=== PATIENT | female | born 1950 | race Caucasian/White ===

== ENCOUNTER 2018-04-14 05:30 | Day surgery (SDC) | payer MEDICARE, OTHER ==
[2018-04-11 11:54] LABS: HEMATOCRIT 40.5 % (36.0-48.0); HEMOGLOBIN 13.9 g/dL (12-16); MCHC 34.3 g/dL (31.0-37.0); MEAN PLATELET VOLUME 8.9 fL (7.4-10.4); RBC 4.09 10x6/uL (4.00-5.40); RDW 12.8 % (11.5-14.5)
[~2018-04-14] VITALS: Ht 170.2 cm; Wt 88.5 kg
--- NOTE | ~2018-04-14 | OP ---
PATIENT NAME: ANTWAN MCCORMACK MEDICAL RECORD: [id number] :46 LOCATION:D.OPS ADMISSION DATE: SURGEON: MARTELL BRADSHAW MD DATE OF OPERATION: 04/14/2018 PREOPERATIVE DIAGNOSIS: Lateral meniscus tear of the right knee. POSTOPERATIVE DIAGNOSIS: Lateral meniscus tear of the right knee. PROCEDURE: Arthroscopic partial lateral meniscectomy. SURGEON: Martell Bradshaw MD ANESTHESIA: General. INTRAOPERATIVE COMPLICATIONS: None. SUMMARY OF PATHOLOGIC FINDINGS: The patient had substantial tearing of the lateral meniscus, very complex in nature. OPERATIVE SUMMARY IN DETAIL: After obtaining the appropriate preoperative orthopedic surgery consent as well as anesthetic consultation, evaluation, and clearance, the patient was brought to the operating room and placed on the operating table in the supine position. After general laryngeal mask was administered, tourniquet was placed about the proximal aspect of the right lower extremity. The right lower extremity was then prepped and draped in routine sterile fashion. The leg was elevated, exsanguinated, and tourniquet was inflated to 350 mmHg. Routine inferolateral portal was established followed by superomedial portal and inferomedial portal. Diagnostic arthroscopy did reveal the above findings. Combination of 3.5 full radius resector as well as meniscotome was then utilized to excise the lateral meniscus almost in its entirety. Having completed this, the knee was insufflated with 30 cc of 0.25% Marcaine with epinephrine and 80 mg of Depo-Medrol. Arthroscopy portals were closed in routine interrupted fashion using 4-0 Prolene. Sterile dressings were applied. The patient was awakened and taken to recovery room in stable condition. All final needle and sponge counts were correct. TRANSINT:[id number] Voice Confirmation ID: [id number] DOCUMENT ID: [id number] MARTELL BRADSHAW MD at 0837 CC: [id number] DICTATION DATE: 04/15/18 1547 CERTIFIER: 04/15/18 1748 [facility] 04/14/[address] [address]
[~2018-04-14 05:30] MED LIST: BUSPAR5 MG PO; CELEXA40 MG PO; OXYBUTYNIN CHLOR5 MG PO; ULTRAM50 MG PO
[2018-04-14 06:08] VITALS: BP 124/77; Ht 170.2 cm; Wt 88.5 kg
[2018-04-14] MEDS ORDERED: NORCO 10-325 TA1 TAB PO (07:59)
== END 2018-04-14 09:54 | disposition home or self-care (01) ==
LOC: D.OPS 05:30 → D.PAN 12:30 → D.OPS 12:30
PROVIDERS: Anesthesiology
DX: S83.271A Complex tear of lateral meniscus, current injury, right knee, initial encounter (principal); Z01.812 Encounter for preprocedural laboratory examination

== ENCOUNTER 2019-04-10 09:35 | Day surgery (SDC) | payer MEDICARE, OTHER ==
[~2019-04-10] VITALS: Ht 170.2 cm; Wt 86.2 kg
--- NOTE | ~2019-04-10 | OP ---
PATIENT NAME: ANTWAN MCCORMACK MEDICAL RECORD: [id number] :46 LOCATION:D.OPS ADMISSION DATE: SURGEON: JHONNY ROBINS MD DATE OF OPERATION: 04/10/2019 PREOPERATIVE DIAGNOSES: Lumbar spinal stenosis and foraminal stenosis, L4-L5 on the right. POSTOPERATIVE DIAGNOSES: Lumbar spinal stenosis and foraminal stenosis, L4-L5, on the right. SURGEON: Dr. Jhonny Robins PROCEDURES: Right L4-L5 laminectomy, medial facetectomy, and foraminotomy L4-L5 on the right. DESCRIPTION AND TECHNIQUE: After induction of general endotracheal anesthesia, the patient was rolled prone on a Norman frame. Lumbar spine was prepped and draped in usual sterile fashion. Fluoroscopic x-ray and spinal needle localized the L4-L5 interspace on the right side. A stab incision was created with a #11 blade. Series of dilators was used to advance a METRx retractor to the L4-L5 interspace on the right. A microscope and Midas Unruly drill were used to perform a laminectomy, medial facetectomy and foraminotomy at L4-L5 on the right. Hypertrophied ligamentum flavum was removed with Cloward rongeurs as long as the L5 nerve roots decompressed well. Meticulous hemostasis was maintained throughout the wound. Wound was irrigated with copious amounts of irrigant solution. The fascia was closed with 2-0 Vicryl suture. Subdermal layer was closed with 3-0 Vicryl suture. Skin was closed with gopal. A sterile dressing was applied to the wound. The patient was awakened in good condition and taken to recovery. All counts were reported as correct. Estimated blood loss was minimal. TRANSINT:[id number] Voice Confirmation ID: [id number] DOCUMENT ID: [id number] JHONNY ROBINS MD CC: [id number] DICTATION DATE: 04/10/19 1449 AUTOMATION DESIGN ENGINEER: 04/11/19 0023 [facility] 04/10/19 [place] [id number]
[~2019-04-10 09:35] MED LIST changes: +NORCO 10-325 TA1 TAB PO
[2019-04-10 10:42] VITALS: BP 130/77; Ht 170.2 cm; Wt 86.2 kg
[2019-04-10] MEDS ORDERED: HYDROCODON-ACE1 EA10 PO (13:48)
== END 2019-04-10 16:00 | disposition home or self-care (01) ==
LOC: D.OPS 09:35 → D.PAN 10:05 → D.OPS 11:30 → D.PAN 11:30 → D.OPS 11:40 → D.PAN 11:40 → D.OPS 16:00
PROVIDERS: ATTEND Neurological Surgery
DX: M48.061 Spinal stenosis, lumbar region without neurogenic claudication (principal)

== ENCOUNTER 2019-04-13 09:40 | Inpatient (IN) | payer MEDICARE, OTHER ==
[~2019-04-13] VITALS: Ht 170.2 cm; Wt 90.9 kg
[~2019-04-13 09:40] MED LIST changes: +HYDROCODON-ACE1 EA10 PO
[2019-04-13 10:28] LABS: BASOPHILS 0.4 % (0-2); EOSINOPHILS 2.1 % (0-7); HEMATOCRIT 35.2 % (36.0-48.0); HEMOGLOBIN 11.8 g/dL (12-16); IMMATURE GRANULOCYTES 0.4 % (0-5); LYMPHOCYTES 29.2 % (15-50); MCH 33.3 pg (26.0-34.0); MCHC 33.5 g/dL (31.0-37.0); MCV 99.4 fL (80.0-100.0); MEAN PLATELET VOLUME 9.4 fL (7.4-10.4); MONOCYTES 8.4 % (2-11); NEUTROPHILS 59.5 % (40-80); PLATELET COUNT 232 10x3/uL (130-400); RBC 3.54 10x6/uL (4.00-5.40); RDW 13.1 % (11.5-14.5); WBC 7.6 10x3/uL (4.8-10.8)
[2019-04-13 10:47] LABS: ALKALINE PHOSPHATASE 73 U/L (46-116); ALT (SGPT) 19 U/L (10-68); BILIRUBIN - TOTAL 0.61 mg/dL (0.2-1.3); CALC OSMOLALITY 282 mosm/kg (275-300); CALCIUM 8.3 mg/dL (8.5-10.1); CARBON DIOXIDE 24.3 mmol/L (21.0-32.0); CHLORIDE - SERUM 107 mmol/L (98-107); CREATININE - SERUM 0.5 mg/dL (0.6-1.3); GLUCOSE 81 mg/dL (74-106); POTASSIUM - SERUM 3.5 mmol/L (3.5-5.1); PROTEIN - SERUM 6.5 g/dL (6.4-8.2); SODIUM 143 mmol/L (136-145); UREA NITROGEN 11 mg/dL (7-18); eGFR NON AFRICAN AMERICAN > 90 mL/min (90-120)
--- NOTE | 2019-04-13 12:52 | NUR ---
REPORT TO DANIELLA PHAN. [place]ITTED [place] [id number]
--- NOTE | 2019-04-13 13:11 | MORECARE ---
CASE MANAGEMENT DISCHARGE SUMMARY PATIENT: ANTWAN MCCORMACK UNIT: [id number] ADM DATE: 04/13/19 AGE: 68 : 48 SEX: F ROOM/BED: D.2239 AUTHOR: SANTO PLAZA PHYSICIAN: REFERRING PHYSICIAN: EYAL HDZ MD DATE OF SERVICE: 04/13/19 Discharge Plan Patient Name: ANTWAN MCCORMACK Facility: [facility]:[place] : 1950 Planned Disposition: Anticipated Discharge Date: 04/14/19 Discharge Date: Expected LOS: 1 Initial Reviewer: [email or web address] Initial Review Date: 04/13/2019 Generated: 04/13/19 2:11 pm Coverage Notice Reviewer: [email or web address] Kassidy Vernon Notice Issued Date-Time: 04/13/2019 11:38 Notice Type: Medicare Outpatient Observation Notice Notice Delivered To: Patient Relationship to Patient: Instrument Specialist Name: Delivery Method: HAND - Hand Delivered Meredith Days: Prior Verbal Notification: Recipient Understood Notice: Recipient Signature: Med Rec Note Co-signed by Attending: Coverage Notice Comment: Patient Name: ANTWAN MCCORMACK Page [id number] at 1311 All edits/amendments must be made on the electronic document DICTATION DATE: 04/13/19 1311 PAINT MIXER MACHINE: MIGUEL 04/13/19 1311 RPT#: [id number] DC DATE: STATUS: ADM IN [facility] [address] [place] [address] END OF REPORT
--- NOTE | 2019-04-13 13:15 | NUR ---
RECEIVED TO ROOM 2239 VIA STRETCHER FROM THE ER. A/O X3. SKIN INTACT WITHOUT REDNESS EXCEPT SMALL INCISION TO MID BACK WITH 13 CLIPS INTACT, WOUND IS CLEAN DRY AND WELL APPROXIMATED. DENIES NEEDS.
--- NOTE | 2019-04-13 13:22 | MORECARE ---
CASE MANAGEMENT DISCHARGE SUMMARY PATIENT: ANTWAN MCCORMACK UNIT: [id number] ADM DATE: 04/13/19 AGE: 68 : 48 SEX: F ROOM/BED: D.2239 AUTHOR: MELADOC PHYSICIAN: REFERRING PHYSICIAN: EYAL HDZ MD DATE OF SERVICE: 04/13/19 Discharge Plan Patient Name: ANTWAN MCCORMACK Facility: [facility]:[place] : 1950 Planned Disposition: Anticipated Discharge Date: 04/14/19 Discharge Date: Expected LOS: 1 Initial Reviewer: [email or web address] Initial Review Date: 04/13/2019 Generated: 04/13/19 2:21 pm DCP- Discharge Planning Updated by [email or web address]: Jesika Vernon on 04/13/19 12:[address] DC PLAN: Return to her sig other's house. ANTICIPATED DC NEEDS: Denied need for HH or OP Therapy. CM met with patient to complete initial dc planning assessment. CM educated patient on the CM role and verbal consent given by patient to complete assessment. CM verified patient's address, phone number, and emergency contact phone numbers. Patient lives at her sig other's house right now. She reports she is independent in her care at home. At discharge patient plans to return to her significant other's house and feels this is a safe discharge. CM discussed availability of home health, rehab services, and medical equipment. Patient denied known discharge needs at this time. Patient reports her sig other will transport him/her home at time of discharge. CM will continue to follow and will assist as needed with dc plans/needs. Jesika Vernon RN, [facility] DCPIA - Discharge Planning Initial Assessment Updated by [email or web address]: Jesika Vernon on 04/13/19 1:11 pm * Is the patient Alert and Oriented? Yes * How many steps to enter\exit or inside your home? none * PCP Dr. Minor * Pharmacy [address] * Preadmission Environment Home with Family * ADLs Independent * Equipment Cane Rolling Walker * List name and contact numbers for known caregivers / representatives who currently or will assist patient after discharge: Iván Morocho - [facility] [place] - [phone] * Verbal permission to speak to the caregivers and representatives has been obtained from the patient. Yes * Community resources currently utilized None * Additional services required to return to the preadmission environment? No * Can the patient safely return to the preadmission environment? Yes * Has this patient been hospitalized within the prior 30 days at any hospital? Yes Coverage Notice Reviewer: [id number] Kassidy Vernon Notice Issued Date-Time: 04/13/2019 11:38 Notice Type: Medicare Outpatient Observation Notice Notice Delivered To: Patient Relationship to Patient: Enterprise Sales Executive Name: Delivery Method: HAND - Hand Delivered Meredith Days: Prior Verbal Notification: Recipient Understood Notice: Recipient Signature: Med Rec Note Co-signed by Attending: Coverage Notice Comment: Last DP export: 04/13/19 12:11 p Patient Name: ANTWAN MCCORMACK Page [id number] at 1322 All edits/amendments must be made on the electronic document DICTATION DATE: 04/13/19 1321 VOCATIONAL REHABILITATION ADMINISTRATOR: MIGUEL 04/13/19 1321 RPT#: [id number] DC DATE: STATUS: ADM IN [facility] [address] [place] [address] END OF REPORT
[2019-04-13 13:27] VITALS: BP 125/70; Ht 170.2 cm; Wt 90.9 kg
[2019-04-13 15:55] VITALS: BP 120/53
--- NOTE | 2019-04-13 19:33 | NUR ---
ATE ALL OF SUPPER. REPORTS BEING MUCH MORE COMFORTABLE WITH USE OF ELECTROCARDIOGRAPHIC TECHNICIAN. DENIES NEEDS.
[2019-04-13 22:28] VITALS: BP 123/68
[2019-04-14] VITALS: BP 106/66
[2019-04-14 06:13] VITALS: BP 123/78
[2019-04-14 06:49] LABS: BASOPHILS 0 % (0-2); EOSINOPHILS 0 % (0-7); HEMATOCRIT 35.3 % (36.0-48.0); HEMOGLOBIN 11.7 g/dL (12-16); IMMATURE GRANULOCYTES 0.2 % (0-5); LYMPHOCYTES 16.6 % (15-50); MCH 32.7 pg (26.0-34.0); MCHC 33.1 g/dL (31.0-37.0); MCV 98.6 fL (80.0-100.0); MEAN PLATELET VOLUME 9.6 fL (7.4-10.4); MONOCYTES 3.1 % (2-11); NEUTROPHILS 80.1 % (40-80); PLATELET COUNT 267 10x3/uL (130-400); RBC 3.58 10x6/uL (4.00-5.40)
[2019-04-14 06:54] LABS: WBC 4.5 10x3/uL (4.8-10.8)
[2019-04-14 07:03] LABS: ALBUMIN 2.9 g/dL (3.4-5.0); ALKALINE PHOSPHATASE 70 U/L (46-116); ALT (SGPT) 17 U/L (10-68); BILIRUBIN - TOTAL 0.27 mg/dL (0.2-1.3); CALC OSMOLALITY 280 mosm/kg (275-300); CALCIUM 8.7 mg/dL (8.5-10.1); CARBON DIOXIDE 25.5 mmol/L (21.0-32.0); CHLORIDE - SERUM 105 mmol/L (98-107); CREATININE - SERUM 0.5 mg/dL (0.6-1.3); POTASSIUM - SERUM 3.9 mmol/L (3.5-5.1); PROTEIN - SERUM 6.6 g/dL (6.4-8.2); SODIUM 140 mmol/L (136-145); UREA NITROGEN 11 mg/dL (7-18); eGFR NON AFRICAN AMERICAN > 90 mL/min (90-120)
[2019-04-14 07:05] LABS: GLUCOSE 150 mg/dL (74-106)
--- NOTE | 2019-04-14 07:15 | NUR ---
I have reviewed this patient and I concur with the Shift Assessment completed by the Licensed Practical Nurse today this shift.
--- NOTE | 2019-04-14 08:13 | NUR ---
AWAKE AND ALERT. ORIENTED X3. NO C/O AT THIS TIME. LUNGS ARE CLEAR BILATERALLY, NO COUGH NOTED. SKIN IS INTACT WITHOUT REDNESS EXCEPT SMALL INCISION TO MID BACK WHICH IS CLEAN DRY AND WELL APPROXIMATED WITH CLIPS INTACT. IV TO LEFT HAND IS PATENT WITHOUT REDNESS AT INSERTION SITE. PUREWICK IS PATENT WITH CLEAR YELLOW URINE. DENIES NEEDS.
[2019-04-14 08:55] VITALS: BP 134/75
--- NOTE | 2019-04-14 10:00 | NUR ---
RESTING QUIETLY IN BED. DENIES NEEDS.
[2019-04-14 12:15] VITALS: BP 136/74
[2019-04-14 16:20] VITALS: BP 127/59
--- NOTE | 2019-04-14 19:16 | NUR ---
RESTING QUIETLY IN BED. DENIES NEEDS.
--- NOTE | 2019-04-14 21:51 | NUR ---
AWAKE,ALERT,NO COMPLAITNS VOCIED. RESP EVEN AND UNLABORED. AUTOMOTIVE SERVICE PORTER MORPHINE IN USE FOR PAIN CONTROL. CLIPS INTACT TO LUMBAR INCISION WIHTOUT REDNESS OR EDEMA NOTED.CL IN REACH
--- NOTE | 2019-04-14 22:01 | NUR ---
RESTING QUEITLY WITH NO COMPLAINTS VOICED. CHEST TUBE TO LEFT CHEST INTACT AN CONNECTED TO 20 CM SUCTION. NO DISTRESS NOTED. RESP UNLABORED. CL IN REACH
[2019-04-14 22:21] VITALS: BP 135/72
--- NOTE | 2019-04-15 04:01 | NUR ---
I have reviewed this patient and I concur with the Shift Assessment completed by the Licensed Practical Nurse today this shift.
[2019-04-15 04:58] VITALS: BP 127/66
[2019-04-15 06:22] LABS: BASOPHILS 0 % (0-2); EOSINOPHILS 0 % (0-7); HEMATOCRIT 34.7 % (36.0-48.0); HEMOGLOBIN 11.5 g/dL (12-16); IMMATURE GRANULOCYTES 0.6 % (0-5); LYMPHOCYTES 12.8 % (15-50); MCH 32.7 pg (26.0-34.0); MCHC 33.1 g/dL (31.0-37.0); MCV 98.6 fL (80.0-100.0); MEAN PLATELET VOLUME 9.7 fL (7.4-10.4); MONOCYTES 6.7 % (2-11); NEUTROPHILS 79.9 % (40-80); PLATELET COUNT 295 10x3/uL (130-400); RBC 3.52 10x6/uL (4.00-5.40); RDW 13.3 % (11.5-14.5)
[2019-04-15 06:31] LABS: WBC 7.3 10x3/uL (4.8-10.8)
[2019-04-15 06:50] LABS: ALBUMIN 2.7 g/dL (3.4-5.0); ALKALINE PHOSPHATASE 62 U/L (46-116); ALT (SGPT) 18 U/L (10-68); BILIRUBIN - TOTAL 0.24 mg/dL (0.2-1.3); CALC OSMOLALITY 287 mosm/kg (275-300); CALCIUM 8.5 mg/dL (8.5-10.1); CARBON DIOXIDE 26.1 mmol/L (21.0-32.0); CHLORIDE - SERUM 107 mmol/L (98-107); CREATININE - SERUM 0.5 mg/dL (0.6-1.3); GLUCOSE 128 mg/dL (74-106); PROTEIN - SERUM 5.8 g/dL (6.4-8.2); SODIUM 143 mmol/L (136-145); UREA NITROGEN 14 mg/dL (7-18); eGFR NON AFRICAN AMERICAN > 90 mL/min (90-120)
--- NOTE | 2019-04-15 08:08 | NUR ---
ALERT AND ORIENTED. LUNGS CLEAR BILATERALLY. HEART SOUNDS S1 AND S2 HEARD IN ALL [place]STA[place]. LUMBAR INCISION C/D/I. IV TO LEFT HAND PATENT WITHOUT REDNESS. BOWEL SOUNDS ACTIVE X 4. STATES CANNOT GET UP WITH PT YET. DENIES NEEDS. BED LOW. CALL NORTON AND PERSONAL ITEMS IN REACH. WILL CONTINUE TO MONITOR.
[2019-04-15 09:03] VITALS: BP 137/77
--- NOTE | 2019-04-15 10:09 | NUR ---
RESTING IN BED. DENIES NEEDS. WILL CONTINUE TO MONITOR.
[2019-04-15 12:56] VITALS: BP 117/72
--- NOTE | 2019-04-15 14:37 | NUR ---
PURE WICK CATHETER CHANGED
--- NOTE | 2019-04-15 16:06 | NUR ---
RESTING IN BED. DENIES NEEDS. WILL CONTINUE TO MONITOR.
[2019-04-15 17:19] LABS: ERYTHROCYTE SEDIMENTATION RATE 19 mm/hr (0-30)
[2019-04-15 20:00] VITALS: BP 138/72
--- NOTE | 2019-04-15 20:15 | NUR ---
AWAKE,ALERT.NO COMPLAITNS VOICED. ACTIVITIES COUNSELOR MORPHINE IN USE FOR PAIN CONTROL. IV TO RIGHT HAND INTACT WITHOUT REDNESS OR EDEMA NOTED. CLIPS INTACT TO LUMBAR INCCISION WITHOUT DRAINAGE NOTED. CL IN REACH
[2019-04-16 04:00] VITALS: BP 156/77
[2019-04-16 05:11] LABS: BASOPHILS 0.1 % (0-2); EOSINOPHILS 0 % (0-7); HEMATOCRIT 35.1 % (36.0-48.0); HEMOGLOBIN 11.7 g/dL (12-16); IMMATURE GRANULOCYTES 1.1 % (0-5); LYMPHOCYTES 14.2 % (15-50); MCH 33.1 pg (26.0-34.0); MCHC 33.3 g/dL (31.0-37.0); MCV 99.2 fL (80.0-100.0); MEAN PLATELET VOLUME 9.4 fL (7.4-10.4); MONOCYTES 7.1 % (2-11); NEUTROPHILS 77.5 % (40-80); PLATELET COUNT 289 10x3/uL (130-400); RBC 3.54 10x6/uL (4.00-5.40); RDW 13.2 % (11.5-14.5); WBC 7.2 10x3/uL (4.8-10.8)
[2019-04-16 05:41] LABS: ALBUMIN 2.7 g/dL (3.4-5.0); ALKALINE PHOSPHATASE 62 U/L (46-116); ALT (SGPT) 21 U/L (10-68); BILIRUBIN - TOTAL 0.19 mg/dL (0.2-1.3); CALC OSMOLALITY 286 mosm/kg (275-300); CALCIUM 8.4 mg/dL (8.5-10.1); CARBON DIOXIDE 29.5 mmol/L (21.0-32.0); CHLORIDE - SERUM 106 mmol/L (98-107); CREATININE - SERUM 0.6 mg/dL (0.6-1.3); GLUCOSE 113 mg/dL (74-106); POTASSIUM - SERUM 4.3 mmol/L (3.5-5.1); PROTEIN - SERUM 5.9 g/dL (6.4-8.2); SODIUM 143 mmol/L (136-145); UREA NITROGEN 15 mg/dL (7-18); eGFR NON AFRICAN AMERICAN > 90 mL/min (90-120)
--- NOTE | 2019-04-16 07:22 | NUR ---
ALERT AND ORIENTED. LUNGS CLEAR BILATERALLY IN ALL [place]. HEART SOUNDS S1 AND S2 HEARD IN ALL [place]. BOWEL SOUNDS ACTIVE X 4. PURE WICK IN PLACE TO SUCTION. IV TO LEFT HAND PATENT WITHOUT REDNESS. INCISION TO BACK C/D/I. ABLE TO BEND RIGHT KNEE. STATES MUCH BETTER THAN YESTERDAY. SWELLING DECREASED. WANTS TO SWITCH TO PO PAIN MEDICATION TODAY AND DC DIRECTOR SOFTWARE DEVELOPMENT PUMP. WILL NOTIFY PHYSICIAN. DENIES NEEDS AT THIS TIME. BED LOW. FALL PRECAUTIONS IN PLACE. CALL NORTON AND PERSONAL ITEMS IN REACH. WILL CONTINUE TO MONITOR.
[2019-04-16 09:13] VITALS: BP 130/76
--- NOTE | 2019-04-16 09:31 | NUR ---
RESTING IN BED. DENIES NEEDS. WILL CONTINUE TO MONITOR.
--- NOTE | 2019-04-16 12:13 | MORECARE ---
CASE MANAGEMENT DISCHARGE SUMMARY PATIENT: ANTWAN MCCORMACK UNIT: [id number] ADM DATE: 04/14/19 AGE: 68 : 48 SEX: F ROOM/BED: D.6689 AUTHOR: SANTO PLAZA PHYSICIAN: REFERRING PHYSICIAN: JHONNY YEUNG MD DATE OF SERVICE: 04/16/19 Discharge Plan Patient Name: ANTWAN MCCORMACK Facility: [facility]:[place] : 1950 Planned Disposition: Anticipated Discharge Date: 04/14/19 Discharge Date: Expected LOS: 1 Initial Reviewer: [email or web address] Initial Review Date: 04/13/2019 Generated: 04/16/19 1:12 pm Comments DCP- Discharge Planning Updated by [email or web address]: Cheryle Colunga on 04/16/19 11:[address] PT recommends inpatient rehab. I spoke with the patient regarding this, and she states she would like inpatient rehab if her insurance will cover it. Rehab screen ordered. CM will continue to follow and assist with discharge planning/needs. DCP- Discharge Planning Updated by [email or web address]: Jesika Vernon on 04/13/19 12:[address] DC PLAN: Return to her sig other's house. ANTICIPATED DC NEEDS: Denied need for HH or OP Therapy. CM met with patient to complete initial dc planning assessment. CM educated patient on the CM role and verbal consent given by patient to complete assessment. CM verified patient's address, phone number, and emergency contact phone numbers. Patient lives at her sig other's house right now. She reports she is independent in her care at home. At discharge patient plans to return to her significant other's house and feels this is a safe discharge. CM discussed availability of home health, rehab services, and medical equipment. Patient denied known discharge needs at this time. Patient reports her sig other will transport him/her home at time of discharge. CM will continue to follow and will assist as needed with dc plans/needs. Jesika Vernon RN, [facility] DCPIA - Discharge Planning Initial Assessment Updated by [email or web address]: Jesika Vernon on 04/13/19 1:11 pm * Is the patient Alert and Oriented? Yes * How many steps to enter\exit or inside your home? none * PCP Dr. Minor * Pharmacy [facility] [address] * Preadmission Environment Home with Family * ADLs Independent * Equipment Cane Rolling Walker * List name and contact numbers for known caregivers / representatives who currently or will assist patient after discharge: Iván Morocho - [facility] - [phone] * Verbal permission to speak to the caregivers and representatives has been obtained from the patient. Yes * Community resources currently utilized None * Additional services required to return to the preadmission environment? No * Can the patient safely return to the preadmission environment? Yes * Has this patient been hospitalized within the prior 30 days at any hospital? Yes Coverage Notice Reviewer: [id number] Kassidy Vernon Notice Issued Date-Time: 04/13/2019 11:38 Notice Type: Medicare Outpatient Observation Notice Notice Delivered To: Patient Relationship to Patient: Falafel Cart Cook Name: Delivery Method: HAND - Hand Delivered Meredith Days: Prior Verbal Notification: Recipient Understood Notice: Recipient Signature: Med Rec Note Co-signed by Attending: Coverage Notice Comment: Last DP export: 04/13/19 12:22 p Patient Name: ANTWAN MCCORMACK Page [id number] at 1213 All edits/amendments must be made on the electronic document DICTATION DATE: 04/16/19 121 STAFF RADIOLOGIST: MIGUEL 04/16/191211 RPT#: [id number] DC DATE: STATUS: ADM IN [facility] [address] [place] [address] END OF REPORT
[2019-04-16 12:25] VITALS: BP 147/83
--- NOTE | 2019-04-16 14:14 | NUR ---
MANAGER ACCOUNT MANAGEMENT DISCONTINUED PER ORDER. EDUCATION PROVIDED ON PO PAIN MEDICATION. VERBALIZED UNDERSTANDING. IV TO LEFT HAND SL.
--- NOTE | 2019-04-16 15:36 | NUR ---
Rehab Note- Acute Inpatient Rehab prescreen order received. THe patient is a good inpatient rehab candidate when medically stable and ready for discharge form the acute hospital and is in agreeance. Will continue to follow at this time. Thank you for this referral! Rocio Holliday RN Clinical Liaison, [facility] Rehab
--- NOTE | 2019-04-16 16:47 | NUR ---
RESTING IN BED. DENIES NEEDS. WILL CONTINUE TO MONITOR.
[2019-04-16 17:07] VITALS: BP 148/81; BP 155/76
--- NOTE | 2019-04-16 18:47 | NUR ---
RESTING IN BED. DENIES NEEDS. BED LOW. CALL NORTON AND PERSONAL ITEMS IN REACH.
[2019-04-16 20:00] VITALS: BP 140/58
--- NOTE | 2019-04-17 00:08 | NUR ---
PT RESTING IN BED. EYES CLOSED NO SIGNS OF DISTRESS. BREATHING EVEN AND UNLABORED. IV SITE LT HAND DRESSING CLEAN DRY AND INTACT. NO SIGNS INFECTION. SKIN CLEAN DRY AND INTACT. BOWEL SOUNDS HYPOACTIVE. LUNG SOUNDS CLEAR. RT KNEE SWELLING AND REDDNESS PRESENT. WILL CONTINUE PLAN OF CARE. CALL LIGHT IN REACH. BED LOWERED AND LOCKED. BED RAILS UPX2.
[2019-04-17 06:26] VITALS: BP 149/62
[2019-04-17 06:38] LABS: BASOPHILS 0 % (0-2); EOSINOPHILS 0 % (0-7); HEMATOCRIT 39.3 % (36.0-48.0); HEMOGLOBIN 13.1 g/dL (12-16); IMMATURE GRANULOCYTES 3.4 % (0-5); LYMPHOCYTES 14.9 % (15-50); MCH 32.7 pg (26.0-34.0); MCHC 33.3 g/dL (31.0-37.0); MEAN PLATELET VOLUME 9.7 fL (7.4-10.4); MONOCYTES 9.6 % (2-11); NEUTROPHILS 72.1 % (40-80); PLATELET COUNT 328 10x3/uL (130-400); RBC 4.01 10x6/uL (4.00-5.40); RDW 13.2 % (11.5-14.5); WBC 8.1 10x3/uL (4.8-10.8)
[2019-04-17 06:50] LABS: ALBUMIN 2.8 g/dL (3.4-5.0); ALKALINE PHOSPHATASE 58 U/L (46-116); ALT (SGPT) 23 U/L (10-68); BILIRUBIN - TOTAL 0.23 mg/dL (0.2-1.3); CALC OSMOLALITY 285 mosm/kg (275-300); CALCIUM 8.6 mg/dL (8.5-10.1); CARBON DIOXIDE 25.9 mmol/L (21.0-32.0); CHLORIDE - SERUM 105 mmol/L (98-107); CREATININE - SERUM 0.7 mg/dL (0.6-1.3); GLUCOSE 114 mg/dL (74-106); POTASSIUM - SERUM 4.2 mmol/L (3.5-5.1); SODIUM 142 mmol/L (136-145); eGFR NON AFRICAN AMERICAN 88 mL/min (90-120)
[2019-04-17 06:51] LABS: UREA NITROGEN 19 mg/dL (7-18)
[2019-04-17 08:44] VITALS: BP 128/74
[2019-04-17] MEDS ORDERED: DECADRON4 MG PO (13:42)
--- NOTE | 2019-04-17 14:14 | NUR ---
SITTING IN CHAIR AT BEDSIDE. DENIES NEEDS. WILL CONTINUE TO MONITOR.
--- NOTE | 2019-04-17 14:20 | MORECARE ---
CASE MANAGEMENT DISCHARGE SUMMARY PATIENT: ANTWAN MCCORMACK UNIT: [id number] ADM DATE: 04/14/19 AGE: 68 : 48 SEX: F ROOM/BED: D.2239 AUTHOR: SANTO PLAZA PHYSICIAN: REFERRING PHYSICIAN: JHONNY YEUNG MD DATE OF SERVICE: 04/17/19 Discharge Plan Patient Name: ANTWAN MCCORMACK Facility: [facility]:[place] : 1950 Planned Disposition: Anticipated Discharge Date: 04/14/19 Discharge Date: Expected LOS: 1 Initial Reviewer: [email or web address] Initial Review Date: 04/13/2019 Generated: 04/17/19 3:19 pm Comments DCP- Discharge Planning Updated by [email or web address]: Cheryle Colunga on 04/17/19 1:[address] Patient Name: ANTWAN MCCORMACK Encounter No: [id number] : 1950 Primary Insurance: MEDICARE A & B Anticipated DC Date: 04-14-2019 Planned Disposition: External Planned Provider: : DCP follow-up note: Patient in agreement to discharge to inpatient rehab. I called and spoke to Kimberlee, she states she will have to evaluate her. Case management will follow and assist as needed. Cheryle Colunga DCP- Discharge Planning Updated by [email or web address]: Cheryle Colunga on 04/16/19 11:[address] PT recommends inpatient rehab. I spoke with the patient regarding this, and she states she would like inpatient rehab if her insurance will cover it. Rehab screen ordered. CM will continue to follow and assist with discharge planning/needs. DCP- Discharge Planning Updated by [email or web address]: Jesika Vernon on 04/13/19 12:[address] DC PLAN: Return to her sig other's house. ANTICIPATED DC NEEDS: Denied need for HH or OP Therapy. CM met with patient to complete initial dc planning assessment. CM educated patient on the CM role and verbal consent given by patient to complete assessment. CM verified patient's address, phone number, and emergency contact phone numbers. Patient lives at her sig other's house right now. She reports she is independent in her care at home. At discharge patient plans to return to her significant other's house and feels this is a safe discharge. CM discussed availability of home health, rehab services, and medical equipment. Patient denied known discharge needs at this time. Patient reports her sig other will transport him/her home at time of discharge. CM will continue to follow and will assist as needed with dc plans/needs. Jesika Vernon RN, [facility] DCPIA - Discharge Planning Initial Assessment Updated by [email or web address]: Jesika Vernon on 04/13/19 1:11 pm * Is the patient Alert and Oriented? Yes * How many steps to enter\exit or inside your home? none * PCP Dr. Minor * Pharmacy [facility] [address] * Preadmission Environment Home with Family * ADLs Independent * Equipment Cane Rolling Walker * List name and contact numbers for known caregivers / representatives who currently or will assist patient after discharge: Iván Morocho - [facility] - [phone] * Verbal permission to speak to the caregivers and representatives has been obtained from the patient. Yes * Community resources currently utilized None * Additional services required to return to the preadmission environment? No * Can the patient safely return to the preadmission environment? Yes * Has this patient been hospitalized within the prior 30 days at any hospital? Yes Coverage Notice Reviewer: [email or web address] - Jesika Vernon Notice Issued Date-Time: 04/13/2019 11:38 Notice Type: Medicare Outpatient Observation Notice Notice Delivered To: Patient Relationship to Patient: Corporate Administrator Name: Delivery Method: HAND - Hand Delivered Meredith Days: Prior Verbal Notification: Recipient Understood Notice: Recipient Signature: Med Rec Note Co-signed by Attending: Coverage Notice Comment: Reviewer: [email or web address] - Cheryle Colunga Notice Issued Date-Time: 04/17/2019 13:58 Notice Type: IM Discharge Notice Notice Delivered To: Patient Relationship to Patient: Self Corporate Administrator Name: Delivery Method: HAND - Hand Delivered Meredith Days: Prior Verbal Notification: Recipient Understood Notice: Yes Recipient Signature: Yes Med Rec Note Co-signed by Attending: Coverage Notice Comment: IMM explained, signed, given, copy placed in MR Last DP export: 04/16/19 11:13 a Patient Name: ANTWAN MCCORMACK Page [id number] Electronically Signed by [facility] on 04/17/19 at 1420 All edits/amendments must be made on the electronic document DICTATION DATE: 04/17/191418 ELECTRICAL MECHANICAL TECHNICIAN: DM 04/17/191418 RPT#: [id number] DC DATE: STATUS: ADM IN [facility] [address] [place] [address] END OF REPORT
--- NOTE | 2019-04-17 14:27 | MORECARE ---
CASE MANAGEMENT DISCHARGE SUMMARY PATIENT: ANTWAN MCCORMACK UNIT: [id number] ADM DATE: 04/14/19 AGE: 68 : 46 SEX: F ROOM/BED: D.2239 AUTHOR: S[place]O [place] PHYSICIAN: REFERRING PHYSICIAN: JHONNY YEUNG MD DATE OF SERVICE: 04/17/19 Discharge Plan Patient Name: ANTWAN MCCORMACK Facility: [facility]:[place] : 1950 Planned Disposition: Anticipated Discharge Date: 04/14/19 Discharge Date: Expected LOS: 1 Initial Reviewer: [email or web address] Initial Review Date: 04/13/2019 Generated: 04/17/19 3:27 pm Comments DCP- Discharge Planning Updated by [email or web address]: Cheryle Colunga on 04/17/19 1:[address] Received a call from [facility], they will accept patient today to inpatient rehab. DCP- Discharge Planning Updated by [email or web address]: Cheryle Colunga on 04/17/19 1:[address] Patient Name: ANTWAN MCCORMACK Encounter No: [id number] : 1950 Primary Insurance: MEDICARE A & B Anticipated DC Date: 04-14-2019 Planned Disposition: External Planned Provider: : DCP follow-up note: Patient in agreement to discharge to inpatient rehab. I called and spoke to Kimberlee, she states she will have to evaluate her. Case management will follow and assist as needed. Cheryle Colunga DCP- Discharge Planning Updated by [email or web address]: Cheryle Colunga on 04/16/19 11:[address] PT recommends inpatient rehab. I spoke with the patient regarding this, and she states she would like inpatient rehab if her insurance will cover it. Rehab screen ordered. CM will continue to follow and assist with discharge planning/needs. DCP- Discharge Planning Updated by [email or web address]: Jesika Vernon on 04/13/19 12:[address] DC PLAN: Return to her sig other's house. ANTICIPATED DC NEEDS: Denied need for HH or OP Therapy. CM met with patient to complete initial dc planning assessment. CM educated patient on the CM role and verbal consent given by patient to complete assessment. CM verified patient's address, phone number, and emergency contact phone numbers. Patient lives at her sig other's house right now. She reports she is independent in her care at home. At discharge patient plans to return to her significant other's house and feels this is a safe discharge. CM discussed availability of home health, rehab services, and medical equipment. Patient denied known discharge needs at this time. Patient reports her sig other will transport him/her home at time of discharge. CM will continue to follow and will assist as needed with dc plans/needs. Jesika Vernon RN, [facility] DCPIA - Discharge Planning Initial Assessment Updated by [id number]: Jesika Vernon on 04/13/19 1:11 pm * Is the patient Alert and Oriented? Yes * How many steps to enter\exit or inside your home? none * PCP Dr. Minor * Pharmacy [facility] [address] * Preadmission Environment Home with Family * ADLs Independent * Equipment Cane Rolling Walker * List name and contact numbers for known caregivers / representatives who currently or will assist patient after discharge: Iván Morocho - [facility] [place] [facility] - [phone] * Verbal permission to speak to the caregivers and representatives has been obtained from the patient. Yes * Community resources currently utilized None * Additional services required to return to the preadmission environment? No * Can the patient safely return to the preadmission environment? Yes * Has this patient been hospitalized within the prior 30 days at any hospital? Yes Coverage Notice Reviewer: [email or web address] - Jesika Vernon Notice Issued Date-Time: 04/13/2019 11:38 Notice Type: Medicare Outpatient Observation Notice Notice Delivered To: Patient Relationship to Patient: Wireless Retail Manager Name: Delivery Method: HAND - Hand Delivered Meredith Days: Prior Verbal Notification: Recipient Understood Notice: Recipient Signature: Med Rec Note Co-signed by Attending: Coverage Notice Comment: Reviewer: [email or web address] - Cheryle Colunga Notice Issued Date-Time: 04/17/2019 13:58 Notice Type: IM Discharge Notice Notice Delivered To: Patient Relationship to Patient: Self Wireless Retail Manager Name: Delivery Method: HAND - Hand Delivered Meredith Days: Prior Verbal Notification: Recipient Understood Notice: Yes Recipient Signature: Yes Med Rec Note Co-signed by Attending: Coverage Notice Comment: IMM explained, signed, given, copy placed in MR Last DP export: 04/17/19 1:20 p Patient Name: ANTWAN MCCORMACK Page [id number] at 1427 All edits/amendments must be made on the electronic document DICTATION DATE: 04/17/191426 PLASTIC MOLDING OPERATOR: MIGUEL 04/17/191426 RPT#: [id number] DC DATE: STATUS: ADM IN [facility] [address] [place] [address] END OF REPORT
[2019-04-17 14:33] VITALS: BP 131/70
--- NOTE | 2019-04-17 16:06 | NUR ---
SITTING IN CHAIR AT BEDSIDE. DENIES NEEDS. WILL CONTINUE TO MONITOR.
--- NOTE | 2019-04-17 17:27 | NUR ---
DISCHARGE EDUCATION PROVIDED BOTH WRITTEN AND VERBAL. VERBALIZED UNDERSTANDING. DENIES FURTHER QUESTIONS. PATIENT NOT ABLE TO GO TO REHAB UNTIL AFTER SHIFT CHANGE PER REHAB. IV LEFT IN PLACE UNTIL DISCHARGE. WILL CONTINUE TO MONITOR.
--- NOTE | 2019-04-17 17:41 | NUR ---
RESTING IN BED. DENIES NEEDS. WILL CONTINUE TO MONITOR.
[2019-04-17 18:02] VITALS: BP 138/72
--- NOTE | 2019-04-17 21:30 | NUR ---
CALLED REPORT TO REHAB AT 1999. ROOM WASN'T READY. REHAB CALLED TO SAY ROOM IS READY NOW. GAVE PT NIGHT TIME MEDS AND PAIN PILL FOR KNEE PAIN 11/21. NO OTHER NEEDS. PT PACKED UP AND TAKEN TO REHAB BY BED.
--- NOTE | 2019-04-21 07:07 | MORECARE ---
CASE MANAGEMENT DISCHARGE SUMMARY PATIENT: ANTWAN MCCORMACK UNIT: [id number] ADM DATE: 04/14/19 AGE: 68 : 48 SEX: F ROOM/BED: D.2239 AUTHOR: MELADOC PHYSICIAN: REFERRING PHYSICIAN: JHONNY YEUNG MD DATE OF SERVICE: 04/21/19 Discharge Plan Patient Name: ANTWAN MCCORMACK Facility: [facility]:[place] : 1950 Planned Disposition: Anticipated Discharge Date: 04/14/19 Discharge Date: 04/17/2019 Expected LOS: 1 Initial Reviewer: [email or web address] Initial Review Date: 04/13/2019 Generated: 04/21/19 8:06 am Comments DCP- Discharge Planning Updated by [email or web address]: Cheryle Colunga on 04/17/19 1:[address] Received a call from [facility], they will accept patient today to inpatient rehab. DCP- Discharge Planning Updated by [id number]: Cheryle Colunga on 04/17/19 1:[address] Patient Name: ANTWAN MCCORMACK Encounter No: [id number] : 1950 Primary Insurance: MEDICARE A & B Anticipated DC Date: 04-14-2019 Planned Disposition: External Planned Provider: : DCP follow-up note: Patient in agreement to discharge to inpatient rehab. I called and spoke to Kimberlee, she states she will have to evaluate her. Case management will follow and assist as needed. Cheryle Colunga DCP- Discharge Planning Updated by [email or web address]: Cheryle Colunga on 04/16/19 11:[address] PT recommends inpatient rehab. I spoke with the patient regarding this, and she states she would like inpatient rehab if her insurance will cover it. Rehab screen ordered. CM will continue to follow and assist with discharge planning/needs. DCP- Discharge Planning Updated by [email or web address]: Jesika Vernon on 04/13/19 12:[address] DC PLAN: Return to her sig other's house. ANTICIPATED DC NEEDS: Denied need for HH or OP Therapy. CM met with patient to complete initial dc planning assessment. CM educated patient on the CM role and verbal consent given by patient to complete assessment. CM verified patient's address, phone number, and emergency contact phone numbers. Patient lives at her sig other's house right now. She reports she is independent in her care at home. At discharge patient plans to return to her significant other's house and feels this is a safe discharge. CM discussed availability of home health, rehab services, and medical equipment. Patient denied known discharge needs at this time. Patient reports her sig other will transport him/her home at time of discharge. CM will continue to follow and will assist as needed with dc plans/needs. Jesika Vernon RN, [facility] DCPIA - Discharge Planning Initial Assessment Updated by [email or web address]: Jesika Vernon on 04/13/19 1:11 pm * Is the patient Alert and Oriented? Yes * How many steps to enter\exit or inside your home? none * PCP Dr. Minor * Pharmacy [facility] * Preadmission Environment Home with Family * ADLs Independent * Equipment Cane Rolling Walker * List name and contact numbers for known caregivers / representatives who currently or will assist patient after discharge: Iván Morocho - [facility] [place] [facility] - [phone] * Verbal permission to speak to the caregivers and representatives has been obtained from the patient. Yes * Community resources currently utilized None * Additional services required to return to the preadmission environment? No * Can the patient safely return to the preadmission environment? Yes * Has this patient been hospitalized within the prior 30 days at any hospital? Yes Coverage Notice Reviewer: [email or web address] - Jesika Vernon Notice Issued Date-Time: 04/13/2019 11:38 Notice Type: Medicare Outpatient Observation Notice Notice Delivered To: Patient Relationship to Patient: Journeyman Press Operator Name: Delivery Method: HAND - Hand Delivered Meredith Days: Prior Verbal Notification: Recipient Understood Notice: Recipient Signature: Med Rec Note Co-signed by Attending: Coverage Notice Comment: Reviewer: [email or web address] - Cheryle Colunga Notice Issued Date-Time: 04/17/2019 13:58 Notice Type: IM Discharge Notice Notice Delivered To: Patient Relationship to Patient: Self Journeyman Press Operator Name: Delivery Method: HAND - Hand Delivered Meredith Days: Prior Verbal Notification: Recipient Understood Notice: Yes Recipient Signature: Yes Med Rec Note Co-signed by Attending: Coverage Notice Comment: IMM explained, signed, given, copy placed in MR Last DP export: 04/17/19 1:27 p Patient Name: ANTWAN MCCORMACK Page [id number] at 0707 All edits/amendments must be made on the electronic document DICTATION DATE: 04/21/19705 HUMANITIES PROFESSOR: MIGUEL 04/21/19705 RPT#: [id number] DC DATE:04/17/19 STATUS: DIS IN [facility] [address] [place] [address] END OF REPORT
== END 2019-04-17 21:30 | DRG 948 ==
LOC: D.ER 09:40 → D.MS 12:44 → OBSVTIME 12:46 → D.MS 04-14 10:52
PROVIDERS: Family Medicine; Orthopaedic Surgery; ADMIT Family Medicine; ATTEND Family Medicine
PROC: 3E0U33Z Introduction of Anti-inflammatory into Joints, Percutaneous Approach (ICD-10-PCS; principal; 2019-04-16)
PROC: 3E0U3BZ Introduction of Anesthetic Agent into Joints, Percutaneous Approach (ICD-10-PCS; 2019-04-16)
DX: G89.18 Other acute postprocedural pain (principal); M54.9 Dorsalgia, unspecified; F41.8 Other specified anxiety disorders; M25.561 Pain in right knee; M25.551 Pain in right hip; M79.651 Pain in right thigh

== ENCOUNTER 2019-04-17 21:55 | Inpatient (IN) | payer MEDICARE, OTHER ==
[~2019-04-17] VITALS: Ht 170.2 cm; Wt 90.7 kg
--- NOTE | 2019-04-17 21:45 | NUR ---
RECEIVED PT TO FLOOR VIA BED ACCOMPANIED BY [facility]. NO FAMILY NOTED. PT ORIENTED TO ROOM, BATHROOM, REMOTE FUNCTIONS. ALERT AND ORIENTED X4. DENIES ANY PAIN OR NEEDS. LOWER LUMBAR INCISION WITH 13 INTACT PACO OPEN TO AIR. NO REDNESS OR SWELLING NOTED. LEFT HAND IV WITHOUT REDNESS OR SWELLING. FLUSHES WITHOUT DIFFICULTY. DRESSING C/D/I. CALL LIGHT AND WATER WITHIN REACH, FALL PRECAUTIONS IN PLACE. WILL CONTINUE TO MONITOR
[~2019-04-17 21:55] MED LIST changes: +DECADRON4 MG PO
[2019-04-18 01:19] VITALS: BP 137/84; BMI 31.4
--- NOTE | 2019-04-18 02:55 | NUR ---
PT LYING IN BED ON LEFT SIDE EYES CLOSED RESTING QUIETLY. RR EVEN AND UNLABORED. WILL CONTINUE TO MONITOR
[2019-04-18 06:02] LABS: CALC OSMOLALITY 281 mosm/kg (275-300); CALCIUM 8.6 mg/dL (8.5-10.1); CARBON DIOXIDE 25.4 mmol/L (21.0-32.0); CHLORIDE - SERUM 106 mmol/L (98-107); CREATININE - SERUM 0.6 mg/dL (0.6-1.3); GLUCOSE 104 mg/dL (74-106); POTASSIUM - SERUM 4.2 mmol/L (3.5-5.1); SODIUM 141 mmol/L (136-145); UREA NITROGEN 16 mg/dL (7-18); eGFR NON AFRICAN AMERICAN > 90 mL/min (90-120)
[2019-04-18 06:06] LABS: BASOPHILS 0.2 % (0-2); EOSINOPHILS 0.1 % (0-7); HEMATOCRIT 37.8 % (36.0-48.0); HEMOGLOBIN 12.7 g/dL (12-16); IMMATURE GRANULOCYTES 3.4 % (0-5); LYMPHOCYTES 16.5 % (15-50); MCH 33.1 pg (26.0-34.0); MCHC 33.6 g/dL (31.0-37.0); MCV 98.4 fL (80.0-100.0); MEAN PLATELET VOLUME 9.6 fL (7.4-10.4); MONOCYTES 9.3 % (2-11); NEUTROPHILS 70.5 % (40-80); PLATELET COUNT 315 10x3/uL (130-400); RBC 3.84 10x6/uL (4.00-5.40); RDW 13.5 % (11.5-14.5)
[2019-04-18 06:07] LABS: WBC 10.5 10x3/uL (4.8-10.8)
--- NOTE | 2019-04-18 06:10 | NUR ---
PT LYING IN BED EYES CLOSED RESTING QUIETLY.
[2019-04-18 08:00] VITALS: BP 108/60
[2019-04-18 10:45] VITALS: Ht 170.2 cm; Wt 90.7 kg
--- NOTE | 2019-04-18 11:54 | NUR ---
LAYING IN BED WATCHING TV. C/O HEARTBURN AND INDIGESTION. PEPCID AND TUMS GIVEN. CALL LIGHT IN REACH
--- NOTE | 2019-04-18 19:25 | NUR ---
PT IS RESTING IN BED WITH EYES OPEN. ALERT AND ORIENTED X 3. DENIES ANY PAIN OR DISCOMFORT AT THIS TIME. NO NEEDS VOICED. VSS. INCISION TO BACK IS CDI. PACO ARE CDI. SR'S ARE UP X 2 IN BED. CALL LIGHT AND BEDSIDE TABLE ARE WITHIN EASY REACH.
--- NOTE | 2019-04-18 20:30 | NUR ---
SALINE LOCK TO LEFT WRIST NOTED TO HAVE LOOSE TAPE , NO IV MEDS ORDERED. SALINE LOCK DC'D WITH CATHETER INTACT. BANDAID APPLIED TO SITE. PT VOICED RELIEF AT NOT HAVING IT ANY MORE.
[2019-04-18 21:03] VITALS: BP 138/72
--- NOTE | 2019-04-18 21:31 | NUR ---
PT IS RESTING IN BED WITH EYES OPEN. NO NEEDS VOICED.
--- NOTE | 2019-04-18 23:31 | NUR ---
QUIET HOURS. PT LYING IN BED ON LEFT SIDE EYES CLOSED RESTING QUIETLY. NO SIGNS OF DISTRESS NOTED. WILL CONTINUE TO MONITOR
--- NOTE | 2019-04-19 02:50 | NUR ---
I have reviewed this patient and I concur with the Shift Assessment completed by the Licensed Practical Nurse today this shift.
--- NOTE | 2019-04-19 06:04 | NUR ---
RESTING QUIETLY IN BED WITH EYES CLOSED. RESPS ARE EVEN AND UNLABORED. NO ACUTE DISTRESS NOTED.
--- NOTE | 2019-04-19 10:42 | NUR ---
SITTING UP IN BED VISITING WITH FAMILY. DENIES INCREASED PAIN. CALL LIGHT IN REACH
[2019-04-19 12:18] VITALS: BP 134/72
--- NOTE | 2019-04-19 19:30 | NUR ---
PT IS RESTING IN BED WATCHING TV. ALERT AND ORIENTED X 3. DENIES ANY PAIN OR DISCOMFORT AT THIS TIME. NO NEEDS VOICED. VSS. INCISION TO BACK IS CDI. STAPES ARE ALL INTACT. SR'S ARE UP X 2 IN BED. CALL LIGHT AND BEDSIDE TABLE ARE WITHIN EASY REACH.
--- NOTE | 2019-04-19 21:23 | NUR ---
PT IS RESTING IN BED WATCHING TV. NO NEEDS VOICED.
--- NOTE | 2019-04-19 23:48 | NUR ---
QUIET HOURS. PT LYING IN BED ON RIGHT SIDE EYES CLOSED RESTING QUIETLY. NO SIGNS OF DISTRESS NOTED.
--- NOTE | 2019-04-20 01:25 | NUR ---
I have reviewed this patient and I concur with the Shift Assessment completed by the Licensed Practical Nurse today this shift.
--- NOTE | 2019-04-20 03:29 | NUR ---
RESTING IN BED WITH EYES CLOSED.
--- NOTE | 2019-04-20 05:47 | NUR ---
PT RESTING IN BED WITH EYES CLOSED. ASSISTED TO THE BATHROOM PRN.
[2019-04-20 06:55] LABS: BASOPHILS 0.1 % (0-2); HEMATOCRIT 37.7 % (36.0-48.0); HEMOGLOBIN 12.5 g/dL (12-16); IMMATURE GRANULOCYTES 2.1 % (0-5); LYMPHOCYTES 22.5 % (15-50); MCHC 33.2 g/dL (31.0-37.0); MCV 99.5 fL (80.0-100.0); MEAN PLATELET VOLUME 9.1 fL (7.4-10.4); MONOCYTES 8.7 % (2-11); NEUTROPHILS 64.6 % (40-80); PLATELET COUNT 282 10x3/uL (130-400); RBC 3.79 10x6/uL (4.00-5.40); RDW 13.9 % (11.5-14.5); WBC 11.3 10x3/uL (4.8-10.8)
[2019-04-20 07:09] LABS: CALC OSMOLALITY 278 mosm/kg (275-300); CALCIUM 7.8 mg/dL (8.5-10.1); CARBON DIOXIDE 25.4 mmol/L (21.0-32.0); CHLORIDE - SERUM 106 mmol/L (98-107); CREATININE - SERUM 0.5 mg/dL (0.6-1.3); GLUCOSE 84 mg/dL (74-106); POTASSIUM - SERUM 3.9 mmol/L (3.5-5.1); SODIUM 140 mmol/L (136-145); UREA NITROGEN 14 mg/dL (7-18); eGFR NON AFRICAN AMERICAN > 90 mL/min (90-120)
[2019-04-20 08:00] VITALS: BP 126/68
--- NOTE | 2019-04-20 08:28 | NUR ---
SITTING UP IN BED FINISHING BREAKFAST. DENIES NEEDS. CALL LIGHT IN REACH
--- NOTE | 2019-04-20 19:37 | NUR ---
PT ASSISTED UP TO THE BATHROOM WITH SBA. NO FURTHER NEEDS VOICED.
[2019-04-20 20:44] VITALS: BP 123/70
--- NOTE | 2019-04-20 22:08 | NUR ---
RESTING QUIETLY IN BED WITH EYES CLOSED. RESPS ARE EVEN AND UNLABORED. NO ACUTE DISTRESS NOTED.
--- NOTE | 2019-04-20 23:57 | NUR ---
RESTING QUIETLY IN BED WITH EYES CLOSED.
--- NOTE | 2019-04-21 01:13 | NUR ---
I have reviewed this patient and I concur with the Shift Assessment completed by the Licensed Practical Nurse today this shift.
--- NOTE | 2019-04-21 04:56 | NUR ---
RESTING IN BED WITH EYES CLOSED.
[2019-04-21 08:00] VITALS: BP 124/68
--- NOTE | 2019-04-21 08:00 | NUR ---
PT EATING BREAKFAST, DENIES NEEDS. WCTM.
--- NOTE | 2019-04-21 13:00 | NUR ---
Nutrition Follow-up: Diet: Regular PO intake: ~75% x last 3 meals Labs, meds, and skin assessment reviewed Last BM this am. Wt trend stable. Pt remains at low nutrition risk at this time. RD will continue to monitor.
--- NOTE | 2019-04-21 16:05 | NUR ---
PATIENT ADMITTED TO REHAB FROM ACUTE FLOOR. DISCHARGE PLANS ARE FOR PATIENT O RETURN HOME WITH HER S/O. DR. STEVE IS HER PCP AND DME AT HOME IS A CANE AND A ROLLING WALKER. WILL CONTINUE TO FOLLOW WITH PATIENT.
--- NOTE | 2019-04-21 17:54 | NUR ---
PT EATING DINNER, DENIES NEEDS. WCTM.
--- NOTE | 2019-04-21 19:31 | NUR ---
GREETED PATIENT AND INTRODUCED MYSELF HER NURSE. PATIENT IS LAYING IN BED IN SUPINE POSITION WATCHING TV. STATES THAT PAIN LEVEL IS 4/10 ON RIGHT SIDE OF HIP AND RIGHT KNEE. RESPIRATIONS EVEN. NO S/S OF DISTRESS. DENIES NO FURTHER NEEDS AT THIS TIME. CALL LIGHT IN REACH.
[2019-04-21 22:15] VITALS: BP 127/78
--- NOTE | 2019-04-22 00:48 | NUR ---
PT. RESTING QUIETLY WITH EYES CLOSED. RESPIRATIONS EVEN. NO S/S OF DISTRESS. SR UP X 2. BED IN LOWEST POSITION. CALL LIGHT IN REACH.
--- NOTE | 2019-04-22 05:46 | NUR ---
PT. AWAKE AND WATCHING TV. RESPIRATIONS EVEN. NO S/S OF DISTRESS. SR UP X 2. BED IN LOWEST POSITION. CALL LIGHT IN REACH.
[2019-04-22 08:04] VITALS: BP 108/62
--- NOTE | 2019-04-22 08:47 | NUR ---
PT PARTICIPATING IN THERAPY. PT AM MEDS ADMINISTERED. PT DENIES NEEDS. WCTM.
--- NOTE | 2019-04-22 19:17 | NUR ---
GREETED PATIENT AND INTRODUCED MYSELF HER NURSE. PATIENT IS LAYING IN BED WATCHING TV. STATES THAT PAIN IN RIGHT LEG IS 2/10. RESPIRATIONS EVEN. NO S/S OF DISTRESS. CALL LIGHT IN REACH.
[2019-04-22 22:00] VITALS: BP 109/64
--- NOTE | 2019-04-23 02:19 | NUR ---
PT. RESTING QUIETLY WITH EYES CLOSED. RESPIRATIONS EVEN. NO S/S OF DISTRESS. CALL LIGHT IN REACH.
[2019-04-23 08:00] VITALS: BP 119/70
--- NOTE | 2019-04-23 08:00 | NUR ---
SHIFT ASSMT COMPLETED.
--- NOTE | 2019-04-23 13:43 | RHP ---
PATIENT: ANTWAN MCCORMACK MEDICAL RECORD: [id number] ACCOUNT: [id number] LOCATION:[facility] : [birth year] ADMISSION DATE: 04/17/19 REHABILITATION HISTORY AND PHYSICAL EXAMINATION POST ADMISSION PHYSICIAN EXAMINATION POST ADMISSION PHYSICAL EXAM AND HISTORY AND PHYSICAL DATE OF ADMISSION: 04/17/2019 ADMITTING DIAGNOSIS: Lumbar spinal stenosis with radiculopathy. HISTORY OF PRESENT ILLNESS: The patient is a 68-year-old female patient, who presented to the ED on April 13 complaining of right lower back pain going down the back of her legs to her knee. She is postop day 3# of an L4-L5 laminectomy, medial facetectomy, foraminectomy of L4-L5 by Dr. Robins. She was able to ambulate with a walker over the weekend, but the pain became too severe and inability to walk. Currently, her pain level is 10/10. She is complaining of right hip and knee pain. Upon examination, she is very tender to touch along the lateral aspect of her right hip and thigh and over anterior knee. She has warmth and swelling to mid thigh. No tenderness with knee flexion or extension. Reports pain when ambulating. X-ray showed osteoarthritic changes in the hip, but without acute fracture or dislocation. Her x-ray of her knee did show suprapatellar effusion. Ultrasound showed no areas of DVT. Dr. Robins and Dr. Fenton saw her during her stay. Her pain was initially helped by morphine TOWER WATCHMAN and then IV Decadron. She was able to tolerate oral analgesia. Prior to surgery, she was moderately independent with rolling walker and ADLs and mobility. Currently, she is mod-to-max assist for ADLs and mobility secondary to postop pain, and she would like to be able to return home and be able to perform activities of daily living. Comorbidities include depression, right knee pain, right hip pain, right thigh pain, debility, deconditioning, impaired gait, gait disturbance, weakness, status post laminectomy, medial facetectomy and also foraminectomy postop pain. PAST MEDICAL HISTORY: Significant for weakness. Got a history of tobacco use in the past. Urinary incontinence, acid reflux, arthritis, chronic back pain, menopause, depression, anxiety, urinary incontinence. PAST SURGICAL HISTORY: Includes TMJ surgery, kyphoplasty, and right knee scope. ALLERGIES: No known drug allergies. CURRENT MEDICATIONS: She is on a tapering dose of dexamethasone, oxybutynin 5 mg b.i.d., citalopram 40 mg daily, and on Astatula 10/325 one tab every 4 hours p.r.n. HABITS: Distant history of tobacco use. FAMILY HISTORY: Noncontributory. SOCIAL HISTORY: The patient hopes to return back home and get back to her prior level of functioning. REVIEW OF SYSTEMS: GENERAL: Does complain of pain mainly in her low back radiating down her leg. HISTORY AND PHYSICAL [id number] ANTWAN MCCORMACK LUNGS: Does not complain of any shortness of breath. CARDIOVASCULAR: Denies any chest pain. PHYSICAL EXAMINATION: VITAL SIGNS: Stable. She is afebrile. GENERAL: A somewhat obese female, in no acute distress upon exam. HEENT: Normocephalic and atraumatic. Mucosa moist. NECK: Supple. No lymphadenopathy. LUNGS: Clear at this time. No wheezing, rhonchi, or rales. HEART: Regular rate and rhythm. No murmurs, rubs or gallops. ABDOMEN: Soft, benign, and nondistended. Positive bowel sounds times 4. EXTREMITIES: Does have some noted pain in her hip and the suprapatellar region. LABORATORY DATA: White count is 10.5, H&H of 12 and 37, and platelet count is noted to be 315. Her sodium is 141, potassium 4.2, BUN and creatinine of 16 and 0.6, and blood sugar is 104. ASSESSMENT: This is a 68-year-old female patient admitted to the rehab with a working diagnosis of complications secondary to a laminectomy and foraminectomy. The patient has potential to make improvement. We will institute the following multidisciplinary therapies including, but not limited to, physical, occupational, respiratory, speech, nutritional services, prosthetics, and orthotics. Given her complex medical condition and risks for more complications, rehabilitation services cannot be provided at a lower level of care such as a skilled nurse facility. PLAN: 1. Admit to [facility] for an inpatient therapy to include the following disciplines; A. Physical therapy to improve gait, all transfer skills, and bed mobility to modified independent level. B. Occupational therapy to modified independent level. C. Case management to assist with discharge planning and placement options. D. Nutrition to assist with nutritional needs. E. Rehabilitation nursing to assist in monitoring the patient's underlying medical conditions and to assist with any type of bowel or bladder management. 2. The patient's current medications and medical care will be continued. 3. The patient will be placed on standard fall precautions. 4. The patient's estimated length of stay is approximately 7-10 days. 5. We will see this patient again in the a.m. TRANSINT:[id number] Voice Confirmation ID: [id number] DOCUMENT ID: [id number] ROBERT notes whether there has been none or any medical/functional change since admission: - No change since preadmission screen. ROBERT attests patient continues to be appropriate for IRF: - Continues to be appropriate. HISTORY AND PHYSICAL [id number] ANTWAN MCCORMACK,JHONNY DAILY MD at 1343 CC: [id number] DICTATION DATE: 04/18/19 0740 CREDIT AND COLLECTIONS ANALYST: 04/18/19 0902 ADM IN [facility] [address] [place] [address]
--- NOTE | 2019-04-23 20:00 | NUR ---
PATIENT RECEIVED SITTING UP IN BED. ASSESSMENT & VITAL SIGNS DONE. NO C/O PAIN OR DISTRESS. BED LOW. CALL LIGHT WITHIN REACH. WILL CONTINUE TO MONITOR.
[2019-04-23 21:16] VITALS: BP 115/60
--- NOTE | 2019-04-24 02:31 | NUR ---
PATIENT EYES CLOSED. RESPIRATIONS 18 & EVEN. BED LOW. CALL LIGHT & WALKER WITHIN REACH. WILL CONTINUE TO MONITOR.
[2019-04-24 06:33] LABS: ANION GAP 12.2 mmol/L (8-16); CARBON DIOXIDE 30.4 mmol/L (21.0-32.0); CREATININE - SERUM 0.9 mg/dL (0.6-1.3); POTASSIUM - SERUM 4.6 mmol/L (3.5-5.1)
[2019-04-24 06:52] LABS: BASOPHILS 0.4 % (0-2); EOSINOPHILS 2.6 % (0-7); HEMATOCRIT 31.9 % (36.0-48.0); HEMOGLOBIN 9.9 g/dL (12-16); IMMATURE GRANULOCYTES 0.2 % (0-5); MCH 29.8 pg (26.0-34.0); MCV 96.1 fL (80.0-100.0); MEAN PLATELET VOLUME 10.1 fL (7.4-10.4); MONOCYTES 14.5 % (2-11); NEUTROPHILS 60.3 % (40-80); PLATELET COUNT 262 10x3/uL (130-400); RBC 3.32 10x6/uL (4.00-5.40)
[2019-04-24 08:00] VITALS: BP 127/70
--- NOTE | 2019-04-24 08:00 | NUR ---
SHIFT ASSMT COMPLETED.
--- NOTE | 2019-04-24 16:00 | NUR ---
WILL CONTINUE TO MONITOR
[2019-04-24 19:48] VITALS: BP 127/68
--- NOTE | 2019-04-24 19:51 | NUR ---
PT IS RESTING IN BED WITH EYES OPEN. ALERT AND ORIENTED X 3. DENIES ACUTE PAIN OR DISCOMFORT AT THIS TIME. NO NEEDS VOICED. SR'S ARE UP X 2 IN BED. CALL LIGHT AND BEDSIDE TABLE ARE WITHIN EASY REACH.
--- NOTE | 2019-04-24 23:59 | NUR ---
I have reviewed this patient and I concur with the Shift Assessment completed by the Licensed Practical Nurse today this shift.
--- NOTE | 2019-04-25 03:31 | NUR ---
PT LYING IN BED EYES CLOSED RESTING QUIETLY. CL IN REACH
--- NOTE | 2019-04-25 06:06 | NUR ---
PT RESTING IN BED WITH EYES CLOSED.
[2019-04-25 08:18] VITALS: BP 124/67
--- NOTE | 2019-04-25 08:30 | NUR ---
C/O PAIN TO BACK OF LEGS. DENIES INCREASED PAIN TO LOW BACK. ASKING FOR PAIN MEDS. CALL LIGHT IN REACH
--- NOTE | 2019-04-25 15:53 | NUR ---
RESTING QUIETLY IN BED. PAIN MEDS GIVEN THIS MORNING REQUESTED. NO S/S DISTRESS. CALL LIGHT IN REACH
--- NOTE | 2019-04-25 19:28 | NUR ---
PT IS RESTING IN BED WITH EYES OPEN. ALERT AND ORIENTED X3. DENIES ANY PAIN OR DISCOMFORT AT THIS TIME. NO NEEDS VOICED. SR'S ARE UP X 2 IN BED. CALL LIGHT AND BEDSIDE TABLE ARE WITHIN EASY REACH.
[2019-04-25 19:45] VITALS: BP 133/70
--- NOTE | 2019-04-25 21:45 | NUR ---
PT RESTING IN BED WATCHING TV. NO NEEDS VOICED.
--- NOTE | 2019-04-25 23:20 | NUR ---
I have reviewed this patient and I concur with the Shift Assessment completed by the Licensed Practical Nurse today this shift.
--- NOTE | 2019-04-26 03:09 | NUR ---
PT RESTING QUIETLY IN BED WITH EYES CLOSED. NO ACUTE DISTRESS NOTED. ASSISTED TO THE BATHROOM PRN.
--- NOTE | 2019-04-26 05:48 | NUR ---
PT RESTING IN BED WITH EYES CLOSED. RESPS ARE EVEN AND UNLABORED. NO ACUTE DISTRESS NOTED. FRESH ICE WATER PROVIDED TO PT.
[2019-04-26 08:00] VITALS: BP 116/69
--- NOTE | 2019-04-26 08:36 | NUR ---
SITTING UP IN BED FOR BREAKFAST. STILL C/O PAIN TO RLE. DENIES INCREASED PAIN TO LOW BACK. DENIES SOB. CALL LIGHT IN REACH
--- NOTE | 2019-04-26 17:21 | NUR ---
SITTING UP IN BED EATING SUPPER. HAD SHOWER TODAY. C/O PAIN DOWN THE BACK OF HER RLE. DR KINGSTON SEEN TODAY. MOD ASST TO TRANSFER. CALL LIGHT IN REACH
--- NOTE | 2019-04-26 19:53 | NUR ---
PT RESTING IN BED WITH EYES OPEN. ALERT AND ORIENTED X 3. VOICED COMPLAINT OF BACK AND RIGHT LEG PAIN. SHE REQUESTED HER PAIN MEDICATION WITH HER NIGHT TIME MEDICATIONS. SR'S ARE UP X 2 IN BED. CALL LIGHT AND BEDSIDE TABLE ARE WITHIN EASY REACH.
[2019-04-26 20:51] VITALS: BP 131/82
--- NOTE | 2019-04-26 22:00 | NUR ---
PT IS RESTING IN BED WITH EYES CLOSED. NO ACUTE DISTRESS NOTED.
--- NOTE | 2019-04-27 00:50 | NUR ---
PT IS RESTING QUIETLY IN BED WITH EYES CLOSED. NO ACUTE DISTRESS NOTED.
--- NOTE | 2019-04-27 01:46 | NUR ---
I have reviewed this patient and I concur with the Shift Assessment completed by the Licensed Practical Nurse today this shift.
--- NOTE | 2019-04-27 03:49 | NUR ---
PT LYING IN BED SUPINE EYES CLOSED RESTING QUIETLY. CL IN REACH
--- NOTE | 2019-04-27 06:16 | NUR ---
PT RESTING IN BED WITH EYES OPEN. REQUESTED AND GIVEN A SKELAXIN FOR COMPLAINT OF MUSCLE SPASMS IN HER RIGHT LEG.
[2019-04-27 06:29] LABS: BASOPHILS 0.4 % (0-2); EOSINOPHILS 4.2 % (0-7); HEMATOCRIT 36.5 % (36.0-48.0); IMMATURE GRANULOCYTES 0.9 % (0-5); LYMPHOCYTES 28.1 % (15-50); MCHC 32.9 g/dL (31.0-37.0); MCV 100.3 fL (80.0-100.0); MEAN PLATELET VOLUME 8.8 fL (7.4-10.4); MONOCYTES 8.2 % (2-11); NEUTROPHILS 58.2 % (40-80); PLATELET COUNT 233 10x3/uL (130-400); RBC 3.64 10x6/uL (4.00-5.40); RDW 13.7 % (11.5-14.5); WBC 8.5 10x3/uL (4.8-10.8)
[2019-04-27 06:52] LABS: CALC OSMOLALITY 281 mosm/kg (275-300); CALCIUM 8.3 mg/dL (8.5-10.1); CARBON DIOXIDE 24.4 mmol/L (21.0-32.0); CHLORIDE - SERUM 107 mmol/L (98-107); CREATININE - SERUM 0.6 mg/dL (0.6-1.3); GLUCOSE 85 mg/dL (74-106); POTASSIUM - SERUM 4.2 mmol/L (3.5-5.1); SODIUM 142 mmol/L (136-145); UREA NITROGEN 13 mg/dL (7-18); eGFR NON AFRICAN AMERICAN > 90 mL/min (90-120)
[2019-04-27 07:47] VITALS: BP 99/56
--- NOTE | 2019-04-27 13:59 | NUR ---
Nutrition Follow-up: Chart reviewed. Diet: Regular PO intake: 71% average, reports good appetite Labs, meds, and skin assessment all reviewed. +BM. No new wt. Pt remains at low nutrition risk at this time. RD will continue to monitor.
--- NOTE | 2019-04-27 14:51 | NUR ---
LAYING DOWN IN BED RESTING QUIETLY. NO S/S DISTRESS. KEEPS BLE ELEVATED TO RELIEVE BACK PAIN. CALL LIGHT IN REACH
--- NOTE | 2019-04-27 19:35 | NUR ---
PT IS RESTING IN BED WITH EYES OPEN. ALERT AND ORIENTED X 3. PT STATES SHE FEELS BETTER AFTER BEING STARTED ON NEURONTIN TODAY. SR'S ARE UP X 2 IN BED. CALL LIGHT AND BEDSIDE TABLE ARE WITHIN EASY REACH.
[2019-04-27 20:47] VITALS: BP 131/63
--- NOTE | 2019-04-27 21:30 | NUR ---
PT IS RESTING QUIETLY IN BED WATCHING TV. NO NEEDS VOICED.
--- NOTE | 2019-04-27 23:00 | NUR ---
PATIENT RECEIVED IN BED WITH EYES CLOSED. RESPIRATIONS 18 & EVEN. BED LOW. CALL LIGHT WITHIN REACH. WILL CONTINUE TO MONITOR.
--- NOTE | 2019-04-28 02:38 | NUR ---
PATIENT EYES CLOSED. RESPIRATIONS 18 & EVEN. BED LOW CALL LIGHT WITHIN REACH. WILL CONTINUE TOMONITOR.
--- NOTE | 2019-04-28 03:33 | NUR ---
I have reviewed this patient and I concur with the Shift Assessment completed by the Licensed Practical Nurse today this shift.
--- NOTE | 2019-04-28 08:00 | NUR ---
SHIFT ASSMT COMPLETED.BREAKFAST GIVEN.CL IN REACH.
[2019-04-28 08:22] VITALS: BP 118/67
--- NOTE | 2019-04-28 12:00 | NUR ---
IN BED SITTING UP EATING LUNCH.
--- NOTE | 2019-04-28 20:00 | NUR ---
PATIENT RECEIVED SITTING UP IN BED WATCHING TV. ASSESSMENT & VITAL SIGNS DONE. BED LOW. CALL LIGHT WITHIN REACH. WILL CONTINUE TO MONITOR.
[2019-04-28 20:37] VITALS: BP 111/64
--- NOTE | 2019-04-29 02:14 | NUR ---
I have reviewed this patient and I concur with the Shift Assessment completed by the Licensed Practical Nurse today this shift.
[2019-04-29 06:44] LABS: BASOPHILS 0.6 % (0-2); EOSINOPHILS 4.9 % (0-7); HEMATOCRIT 35.5 % (36.0-48.0); HEMOGLOBIN 11.6 g/dL (12-16); IMMATURE GRANULOCYTES 0.6 % (0-5); LYMPHOCYTES 21.3 % (15-50); MCH 33.3 pg (26.0-34.0); MCHC 32.7 g/dL (31.0-37.0); MEAN PLATELET VOLUME 8.9 fL (7.4-10.4); MONOCYTES 9.7 % (2-11); NEUTROPHILS 62.9 % (40-80); PLATELET COUNT 241 10x3/uL (130-400); RBC 3.48 10x6/uL (4.00-5.40); RDW 13.7 % (11.5-14.5); WBC 7.1 10x3/uL (4.8-10.8)
[2019-04-29 06:58] LABS: CALC OSMOLALITY 275 mosm/kg (275-300); CALCIUM 8.5 mg/dL (8.5-10.1); CARBON DIOXIDE 25.5 mmol/L (21.0-32.0); CHLORIDE - SERUM 107 mmol/L (98-107); CREATININE - SERUM 0.6 mg/dL (0.6-1.3); GLUCOSE 86 mg/dL (74-106); POTASSIUM - SERUM 4.2 mmol/L (3.5-5.1); SODIUM 140 mmol/L (136-145); UREA NITROGEN 8 mg/dL (7-18); eGFR NON AFRICAN AMERICAN > 90 mL/min (90-120)
[2019-04-29 07:49] VITALS: BP 122/63
--- NOTE | 2019-04-29 08:00 | NUR ---
SHIFT ASSMT COMPLETED.PLAN TO DISCHARGE TO [facility] TODAY.BREAKFAST GIVEN.
[2019-04-29] MEDS ORDERED: HYDROCODON-ACE1 EA10 PO (08:36)
[2019-04-29] MEDS ORDERED: GABAPENTIN100 MG PO (08:37)
--- NOTE | 2019-04-29 09:18 | NUR ---
PATIENT DISCHARGING TO THE [facility]. NO HOME HEALTH OR DME NEEDED AT THIS TIME. AN APPOINTMENT WITH DR. STEVE WILL BE MADE AT TIME OF DISCHARGE FROM THE FACILITY. DR. VALDEZ 05/04/19 @ 3:30. PATIENT CHOICE FORM AND [facility] FORMS SIGNED, COPY GIVEN TO PATIENT AND FILED IN CHART. DISCHARGE INSTRUCTIONS FAXED TO PCP, SNF AND REVIEWED WITH PATIENT
[2019-04-29] MEDS ORDERED: SULFAMETHOXAZOL1 TA2 PO (11:50)
--- NOTE | 2019-04-29 12:05 | NUR ---
DISCHARGED TO [facility] WITH TRAINING AND DEVELOPMENT SPECIALIST.REPORT CALLED.
== END 2019-04-29 12:00 | DRG 552 ==
LOC: D.REHAB 21:55
PROVIDERS: ADMIT Emergency Medicine; ATTEND Emergency Medicine
DX: M48.061 Spinal stenosis, lumbar region without neurogenic claudication (principal); M54.16 Radiculopathy, lumbar region; F32.9 Major depressive disorder, single episode, unspecified; R26.9 Unspecified abnormalities of gait and mobility; R53.1 Weakness; M54.5 Low back pain; R53.81 Other malaise; M79.651 Pain in right thigh; M25.551 Pain in right hip; M25.561 Pain in right knee